=== PATIENT | female | born 1955 | race Caucasian/White ===

== ENCOUNTER → 2017-05-23 | Outpatient (CLI) | payer BC ==
[2017-05-23 08:18] LABS: Non-African American GFR(MDRD) >60 (>60 ml/min/1.73 sqM)
--- NOTE | 2017-05-23 10:19 | MR ---
EXAMINATION TYPE: MR iac wo/w con DATE OF EXAM: 05/23/2017 COMPARISON: 05/28/2013, 10/21/2012, 06/27/2011 HISTORY: acoustic nuroma disorder of the ear, headaches TECHNIQUE: Multiplanar, multisequence images of the brain and brainstem is performed without and with IV contras t, utilizing 20 mL intravenous MultiHance . FINDINGS: Diffusion weighted images demonstrate no evidence of a recent infarct or other diffusion ab normality. No mass effect or midline shift. Sella turcica has a normal appearance and cerebellar tonsils low-lying in position without evidence o f discrete Chiari malformation.. Areas of abnormal signal involving the ponce are stable. Punctate nonspecific white matter changes are noted and also nonspecific. There are changes of chronic sinusitis. Postop changes noted in the posterior temporal region on the left. Seventh /VIII nerve complex not as well-defined on the left as on the right. Likely postsurgical. There is enhancement along the inferi or margin the complex on the coronal view which appears somewhat serpiginous on the axial view. There is stable dating back to the exam of 2011. Best noted on coronal image 11. IMPRESSION: 1. Postsurgical changes with stable linear enhancement along the inferior margin of the seventh\VIII nerve complex on the left. Unchanged from 2011. The left nerve complex is less well-defined and this likely is postsurgical.2. Nonspecific white matter and pontine changes differential diagnosis would include remote microvascular ischemia. Other etiologies not excluded. Findings are stable.
== END | disposition home or self-care (01) ==
LOC: RADMRIMAIN 07:51
PROVIDERS: ATTEND Psychiatry & Neurology Neurology
DX: R90.82 White matter disease, unspecified (principal); D33.3 Benign neoplasm of cranial nerves; H93.90 Unspecified disorder of ear, unspecified ear; R51 Headache; Z98.890 Other specified postprocedural states
CPT/HCPCS: 82565; 70553; 36415; A9577

== ENCOUNTER → 2017-09-25 | Outpatient (CLI) | payer BC ==
[2017-09-25 15:21] LABS: CH 31.5; CHCM 32.2; HCT 38.9 % (34.0-46.0); HDW 2.52; HGB 12.5 gm/dL (11.4-16.0); MCH 31.6 pg (25.0-35.0); MCHC 32.1 g/dL (31.0-37.0); MCV 98.6 fL (80.0-100.0); Mean Platelet Volume 7.3; RBC 3.94 m/uL (3.80-5.40); RDW 14.1 % (11.5-15.5)
[2017-09-25 15:29] LABS: ALT 53 U/L (9-52); AST 30 U/L (14-36); Alkaline Phosphatase 67 U/L (38-126); Anion Gap 10 mmol/L; Blood Urea Nitrogen 23 mg/dL (7-17); Calcium 9.5 mg/dL (8.4-10.2); Carbon Dioxide 20 mmol/L (22-30); Chloride 109 mmol/L (98-107); Cholesterol 114 mg/dL (<200); Glucose 96 mg/dL (74-99); HDL Cholesterol 62 mg/dL (40-60); INR 1.2 (<1.2); Magnesium 1.5 mg/dL (1.6-2.3); Non-African American GFR(MDRD) 52 (>60 ml/min/1.73 sqM); Partial Thromboplastin Time 22.7 sec (22.0-30.0); Potassium 4.3 mmol/L (3.5-5.1); Sodium 139 mmol/L (137-145); Total Bilirubin 0.5 mg/dL (0.2-1.3); Total Protein 6.4 g/dL (6.3-8.2)
[2017-09-25 19:57] LABS: Iron Saturation 24.59 (12.00-45.00); Iron(FE) 75 ug/dL (50-170); Total Iron Binding Capacity 305 ug/dL (228-460)
[2017-09-27 18:49] LABS: Selenium 132 mcg/L (63-160)
== END ==
LOC: LABWHC1 15:00
PROVIDERS: ATTEND Surgery Plastic and Reconstructive Surgery
DX: Z48.815 Encounter for surgical aftercare following surgery on the digestive system (principal); E66.01 Morbid (severe) obesity due to excess calories; E21.1 Secondary hyperparathyroidism, not elsewhere classified; E89.1 Postprocedural hypoinsulinemia; D50.8 Other iron deficiency anemias; K90.89 Other intestinal malabsorption; E44.0 Moderate protein-calorie malnutrition; E55.9 Vitamin D deficiency, unspecified; K74.1 Hepatic sclerosis; K50.90 Crohn's disease, unspecified, without complications; N19 Unspecified kidney failure; Z98.84 Bariatric surgery status
CPT/HCPCS: 36415; 80053; 80061; 82306; 82525; 82607; 82728; 82746; 83036; 83540; 83550; 83735; 83970; 84100; 84134; 84255; 84425; 84443; 84590; 84630; 85027; 85610; 85730

== ENCOUNTER 2017-11-21 08:08 | Day surgery (SDC) | payer BC ==
[2017-11-19 11:48] VITALS: BMI 27.3
[~2017-11-21 08:08] MED LIST: LACTATED RINGERS 1,000 ML IV SCH
[2017-11-21 08:49] VITALS: TEMP 96.9
[2017-11-21] MEDS ORDERED: LIDOCAINE 1% 20 ML VIAL (10MG/ML) FOR IV START INTRADERMA ONE (09:08)
--- NOTE | 2017-11-21 09:57 | P.GSHP ---
History of Present Illness H&P Date: 11/21/17 CHIEF COMPLAINT: GERD and colon screen HISTORY OF PRESENT ILLNESS: The patient is a 62-year-old female who presents with gastroesophageal reflux disease and need for colon screen. Upper and lower endoscopy were offered for further evaluation and management. PAST MEDICAL HISTORY: Please see list. PAST SURGICAL HISTORY: Please see list. MEDICATIONS: Please see list. ALLERGIES: Please see list. SOCIAL HISTORY: No illicit drug use FAMILY HISTORY: No reports of Crohn disease or ulcerative colitis. REVIEW OF ORGAN SYSTEMS: CONSTITUTIONAL: No reports of fevers or chills. GI: Denies any blood in stools or constipation. PHYSICAL EXAM: VITAL SIGNS: Stable GENERAL: Well-developed pleasant in no acute distress. HEENT: No scleral icterus. Extraocular movements grossly intact. Moist buccal mucosa. NECK: Supple without lymphadenopathy. CHEST: Unlabored respirations. Equal bilateral excursions. CARDIOVASCULAR: Regular rate and rhythm. Distal 2+ pulses. ABDOMEN: Soft, nondistended. MUSCULOSKELETAL: No clubbing, cyanosis, or edema. ASSESSMENT: 1. Gastroesophageal reflux disease 2. Colon screen. PLAN: 1. Recommend proceeding with an upper and lower endoscopy Past Medical History Past Medical History: GERD/Reflux, Neurologic Disorder, Osteoarthritis (OA) Additional Past Medical History / Comment(s): RUPTURED DISCS WITH BACK PAIN., MIGRAINES, OCCASIONAL VERTIGO., KIANA LEFT EAR. History of Any Multi-Drug Resistant Organisms: None Reported Past Surgical History: Appendectomy, Bariatric Surgery Additional Past Surgical History / Comment(s): ACOUSTIC NEUROMA BRAIN TUMOR., INTESTINAL BYPASS FOR WEIGHT LOSS., KIDNEY STONES (SURGERY & LITHOTRIPSY) HX OF STEROID INJECTIONS RIGHT KNEE-6 MONTHS AGO Past Anesthesia/Blood Transfusion Reactions: Motion Sickness Additional Past Anesthesia/Blood Transfusion Reaction / Comment(s): OCCASIONAL VERTIGO Smoking Status: Former smoker - Past Family History Mother Family Medical History: No Reported History Medications and Allergies Home Medications Medication Instructions Recorded Confirmed Type Aspirin [Adult Low Dose Aspirin EC] 81 mg PO DAILY 10/23/17 11/19/17 History Harpal/D3/Mag11/Zinc/Farm Contractor/Rogerio/Bor 1 each PO DAILY 10/23/17 11/21/17 History [Caltrate 600+D Plus Tablet] Glucosam/Genaro-Msm1/C/Rogerio/Bosw 1 each PO DAILY 10/23/17 11/21/17 History [Glucosamine-Chondroitin Tablet] Multivitamins, Thera [Multivitamin 1 tab PO DAILY 10/23/17 11/19/17 History (formulary)] Gifford-3 Fatty Acids [Gifford-3] 1,000 mg PO DAILY 10/23/17 11/19/17 History ALPRAZolam [Xanax] 0.25 mg PO DAILY PRN 11/19/17 11/21/17 History DULoxetine HCL [Cymbalta] 20 mg PO DAILY 11/19/17 11/19/17 History Diclofenac Sodium [Diclofenac 100 mg PO DAILY 11/19/17 11/19/17 History Sodium ER] Levothyroxine Sodium [Synthroid] 25 mcg PO DAILY 11/19/17 11/19/17 History Magnesium Citrate 187.5 mg PO DAILY 11/19/17 11/21/17 History Omeprazole 20 mg PO DAILY 11/19/17 11/21/17 History SUMAtriptan SUCCINATE [Imitrex] 100 mg PO DAILY PRN 11/19/17 11/21/17 History Zolpidem [Ambien] 10 mg PO HS PRN 11/19/17 11/21/17 History Acetaminophen Tab [Tylenol Tab] 650 mg PO Q4H 11/21/17 11/21/17 History Potassium Chloride 8 meq PO DAILY 11/21/17 History Allergies Allergy/AdvReac Type Severity Reaction Status Date / Time wheat Allergy Unknown stomach Verified 11/19/17 11:39 pain and bloating Surgical - Exam Vital Signs Temp Pulse Resp Pulse Ox 96.9 F L 80 18 98 11/21/17 08:47 11/21/17 08:47 11/21/17 08:47 11/21/17 08:47
[2017-11-21] MEDS ORDERED: PROPOFOL 10 MG/ML 20 ML VIAL IV ONE (10:02)
[2017-11-21] MEDS ORDERED: LIDOCAINE 1% INJ 10MG/ML (20 ML MDV) ONE (10:02)
--- NOTE | 2017-11-21 10:36 | P.PCN ---
Date of Procedure: 11/21/17 Description of Procedure: PREOPERATIVE DIAGNOSIS: Gastroesophageal reflux disease. Epigastric abdominal pain. POSTOPERATIVE DIAGNOSIS: Gastroesophageal reflux disease. Epigastric abdominal pain. Chronic superficial gastritis. Duodenitis. OPERATION: Esophagogastroduodenoscopy with biopsies along antrum. SURGEON: Kristina Mccarthy MD ANESTHESIA: MAC. INDICATIONS: The patient is a 62-year-old female who presents with a history of reflux disease. Benefits and risks of the procedure were described. Informed consent was obtained. DESCRIPTION: The patient was brought into the endoscopy suite and laid in the left lateral decubitus position. An Olympus gastroscope was passed along the posterior oropharynx down to the distal esophagus where the squamocolumnar junction was encountered at 40 cm from the incisors. The stomach was entered and no bile reflux was found. Additional findings are listed below. Biopsies with cold forceps were obtained of the antrum. The first through third portion of the duodenum was examined and remarkable for mild duodenitis. Retroflexion of the scope confirmed Hill grade 3 lower esophageal valve. The squamocolumnar junction demostrated early LA grade A erosive esophagitis. The stomach was desufflated. The patient tolerated the procedure well. FINDINGS: Squamocolumnar junction 40 cm from the incisors. Diaphragmatic hiatus at 40 cm. Hill grade 3 lower esophageal valve. LA grade A erosive esophagitis. Duodenitis without bleeding. Hypertrophic mucosa with chronic gastritis. RECOMMENDATIONS: Further recommendations pending results of pathology report. Upper endoscopy as needed.
--- NOTE | 2017-11-21 10:40 | P.PCN ---
Date of Procedure: 11/21/17 Description of Procedure: PREOPERATIVE DIAGNOSIS: Colonoscopy screening. POSTOPERATIVE DIAGNOSIS: Colonoscopy screening. Collagenous colitis. Internal hemorrhoids, grade 2 External hemorrhoids, grade 3. OPERATION: Colonoscopy to the ileocecal valve and appendiceal orifice. Colonoscopy with cold forceps biopsies, random for collagenous colitis SURGEON: Kristina Mccarthy MD. ANESTHESIA: MAC. INDICATIONS: The patient is a 62-year-old female who presents for colonoscopy screening. She also reports incidental change in bowel habits. Benefits and risks were described and informed consent was obtained. DESCRIPTION OF PROCEDURE: The patient had undergone Gatorade, MiraLAX and Dulcolax prep. She had been brought into the operating room and laid in the left lateral decubitus position. After adequate intravenous sedation, the rectum was examined with 2% lidocaine jelly. No external hemorrhoids were encountered. The rectal tone was within normal limits. No lesions were palpated in the rectal vault. An Olympus colonoscope was advanced until the ileocecal valve were viewed. Abdominal wall pressure was required to advance the scope through a redundant colon. The prep was good with visualization of the mucosal folds. Random biopsies were obtained of the mucosa for evaluation of collagenous colitis. No scattered diverticulosis was encountered. No colonic polyps were found. No evidence of focal colitis was found. Retroflexion of the scope demonstrated grade 2 internal hemorrhoids without active bleeding or inflammation. The colon was desufflated. The patient had tolerated the procedure well. Withdrawal time was over 6 minutes. FINDINGS: Internal hemorrhoids, grade 2 External prolapsed hemorrhoids, grade 3. No arteriovenous malformations. No adenomatous polyps. No sigmoid diverticulosis. Random biopsies obtained for collagenous colitis. RECOMMENDATIONS: Lower endoscopy in 10 years per screening guidelines, 2027. Plan - Discharge Summary New Discharge Prescriptions: No Action Multivitamins, Thera [Multivitamin (formulary)] 1 tab PO DAILY Glucosam/Genaro-Msm1/C/Rogerio/Bosw [Glucosamine-Chondroitin Tablet] 1 each PO DAILY Bagdad-3 Fatty Acids [Bagdad-3] 1,000 mg PO DAILY Harpal/D3/Mag11/Zinc/Keyboarding Teacher/Rogerio/Bor [Caltrate 600+D Plus Tablet] 1 each PO DAILY Aspirin [Adult Low Dose Aspirin EC] 81 mg PO DAILY ALPRAZolam [Xanax] 0.25 mg PO DAILY PRN PRN Reason: Anxiety Levothyroxine Sodium [Synthroid] 25 mcg PO DAILY DULoxetine HCL [Cymbalta] 20 mg PO DAILY Zolpidem [Ambien] 10 mg PO HS PRN PRN Reason: SLEEP SUMAtriptan SUCCINATE [Imitrex] 100 mg PO DAILY PRN PRN Reason: MIGRAINES Omeprazole 20 mg PO DAILY Magnesium Citrate 187.5 mg PO DAILY Diclofenac Sodium [Diclofenac Sodium ER] 100 mg PO DAILY Acetaminophen Tab [Tylenol Tab] 650 mg PO Q4H Potassium Chloride 8 meq PO DAILY Discharge Medication List Aspirin [Adult Low Dose Aspirin EC] 81 mg PO DAILY 10/23/17 [History] Harpal/D3/Mag11/Zinc/Keyboarding Teacher/Rogerio/Bor [Caltrate 600+D Plus Tablet] 1 each PO DAILY 10/28 [History] Glucosam/Genaro-Msm1/C/Rogerio/Bosw [Glucosamine-Chondroitin Tablet] 1 each PO DAILY 10/23/17 [History] Multivitamins, Thera [Multivitamin (formulary)] 1 tab PO DAILY 10/23/17 [History ] Bagdad-3 Fatty Acids [Bagdad-3] 1,000 mg PO DAILY 10/23/17 [History] ALPRAZolam [Xanax] 0.25 mg PO DAILY PRN 11/19/17 [History] DULoxetine HCL [Cymbalta] 20 mg PO DAILY 11/19/17 [History] Diclofenac Sodium [Diclofenac Sodium ER] 100 mg PO DAILY 11/19/17 [History] Levothyroxine Sodium [Synthroid] 25 mcg PO DAILY 11/19/17 [History] Magnesium Citrate 187.5 mg PO DAILY 11/19/17 [History] Omeprazole 20 mg PO DAILY 11/19/17 [History] SUMAtriptan SUCCINATE [Imitrex] 100 mg PO DAILY PRN 11/19/17 [History] Zolpidem [Ambien] 10 mg PO HS PRN 11/19/17 [History] Acetaminophen Tab [Tylenol Tab] 650 mg PO Q4H 11/21/17 [History] Potassium Chloride 8 meq PO DAILY 11/21/17 [History]
[2017-11-21 11:06] VITALS: RESP 16
[2017-11-21 11:44] VITALS: BP 139/87; PULSE 63
== END 2017-11-21 11:45 | disposition home or self-care (01) ==
LOC: ORWHC2ENDO 08:08
PROVIDERS: ATTEND Surgery Plastic and Reconstructive Surgery
DX: K29.30 Chronic superficial gastritis without bleeding (principal); K29.80 Duodenitis without bleeding; K21.9 Gastro-esophageal reflux disease without esophagitis; K22.10 Ulcer of esophagus without bleeding; K64.1 Second degree hemorrhoids; K64.2 Third degree hemorrhoids; Q43.8 Other specified congenital malformations of intestine; E07.9 Disorder of thyroid, unspecified; G43.909 Migraine, unspecified, not intractable, without status migrainosus; M19.90 Unspecified osteoarthritis, unspecified site; Z98.84 Bariatric surgery status; Z87.891 Personal history of nicotine dependence; Z79.82 Long term (current) use of aspirin; Z79.1 Long term (current) use of non-steroidal anti-inflammatories (NSAID); Z79.899 Other long term (current) drug therapy; Z91.018 Allergy to other foods
CPT/HCPCS: 88305; 88342; 45380; 43239; J2001; J2704

== ENCOUNTER → 2017-11-30 | Outpatient (CLI) | payer BC ==
--- NOTE | 2017-11-30 17:07 | US ---
EXAMINATION TYPE: US kidneys/renal and bladder DATE OF EXAM: 11/30/2017 COMPARISON: CT & US CLINICAL HISTORY: D30.00 Benign neoplasm of unspecified kidney. EXAM MEASUREMENTS: Right Kidney: 10.9 x 4.1 x 5.2 cm Left Kidney: 10.6 x 5.7 x 5.2 cm more imaging of right kidney performed at end of exam to show angiomyolipoma. Right Kidney: echogenic lesion lower pole measures 0.9 x 1.2 x 1.0 cm Left Kidney: cyst upper pole measures 2.4 x 2.2 x 1.9 cm Bladder: wnl Bilateral Jets seen: Yes IMPRESSION: There is a 10 mm hyperechoic mass on the lower pole right kidney that is increased from 8 mm compared to old exam of 10/21/2015. This is consistent with angiomyolipoma. There is a stable 2.2 cm cyst in the upper pole left kidney.
== END | disposition home or self-care (01) ==
LOC: RADUSWWP 11-21 08:00
PROVIDERS: ATTEND Urology
DX: D30.01 Benign neoplasm of right kidney (principal); N28.1 Cyst of kidney, acquired
CPT/HCPCS: 76770

== ENCOUNTER → 2017-12-14 | Outpatient (CLI) | payer BC ==
[2017-12-17 13:23] LABS: Pork IgE Class CLASS 0
[2017-12-17 13:24] LABS: Beef IgE <0.35 kU/L (<0.35); Beef IgE Class CLASS 0; Chicken IgE Class CLASS 0; Chocolate IgE Class CLASS 0; Cow's Milk IgE Class CLASS 0; Egg White IgE <0.35 kU/L (<0.35); Egg Yolk IgE Class CLASS 0; Gluten IgE Class CLASS 0; Peanut IgE <0.35 kU/L (<0.35); Potato IgE <0.35 kU/L (<0.35); Potato IgE Class CLASS 0; Soybean IgE <0.35 kU/L (<0.35); Yeast Bakers/Brew IgE <0.35 kU/L (<0.35)
[2017-12-17 19:50] LABS: Beef IgG 16.1 mcg/mL (< 2.0); Chicken Meat IgG 4.5 mcg/mL (< 2.0); Chocolate IgG 5.1 mcg/mL (< 2.0); Corn IgG 11.6 mcg/mL (< 2.0); Cow's Milk IgG 82.7 mcg/mL (< 2.0); Egg Yolk IgG 10.2 mcg/mL (< 2.0); Peanut IgG 5.5 mcg/mL (< 2.0); Pork IgG 7.8 mcg/mL (< 2.0); Potato IgG 5.6 mcg/mL (< 2.0); Tomato IgG 7.3 mcg/mL (< 2.0); Wheat IgG 9.7 mcg/mL (< 2.0)
== END | disposition home or self-care (01) ==
LOC: LABWHC1 14:30
PROVIDERS: ATTEND Otolaryngology
DX: N83.202 Unspecified ovarian cyst, left side (principal); J30.89 Other allergic rhinitis
CPT/HCPCS: 36415; 86001; 86003

== ENCOUNTER → 2017-12-26 | Outpatient (CLI) | payer BC ==
--- NOTE | 2017-12-31 08:38 | MM ---
Reason for exam: screening (asymptomatic). Last mammogram was performed 4 years and 7 months ago. History: Patient is postmenopausal. Benign US right guided mammotome of the right breast, March 18, 2008. Excisional biopsy of the left breast, 1999. Took estrogen for 3 years beginning at age 51. Took progesterone for 3 years beginning at age 51. Physical Findings: A clinical breast exam by your physician is recommended on an annual basis and results should be correlated with mammographic findings. MG Screening Mammo w CAD Bilateral CC and MLO view(s) were taken. Prior study comparison: May 28, 2013, bilateral digital screening mammo w/CAD. Previous mammotome biopsy in the right breast. There is chronic nodularity in the right breast. No significant changes when compared with prior studies. ASSESSMENT: Negative, BI-RAD 1 RECOMMENDATION: Routine screening mammogram of both breasts in 1 year.
== END ==
LOC: RADMAMWWP 09:28
PROVIDERS: ATTEND Obstetrics & Gynecology
DX: Z12.31 Encounter for screening mammogram for malignant neoplasm of breast (principal)
CPT/HCPCS: 77067

== ENCOUNTER → 2018-10-10 | Outpatient (CLI) | payer BC ==
--- NOTE | 2018-10-10 11:49 | XR ---
EXAMINATION TYPE: XR abdomen 1V DATE OF EXAM: 10/10/2018 11:33 AM CLINICAL HISTORY: Kidney stones. TECHNIQUE: Two Upright KUB images of the abdomen are obtained. COMPARISON: CT abdomen and pelvis October 16, 2017 FINDINGS: Scattered gas is seen in non-distended small bowel loops. Gas and fecal material is seen in non-distended colon. Contrast from recent outside CT is seen in the collecting systems and bladder w ithout hydronephrosis. Numerous radiodense curvilinear sutures overlie the upper to midabdomen from p rior surgery. There is disc space narrowing with vacuum disc phenomenon right L4-L5 level redemonstra minnie. No definitive nephrolithiasis. Correlate with outside more recent CT advised. IMPRESSION: No hydronephrosis or definitive nephrolithiasis. Limitations due to contrast excretion fr om CT noted.
== END | disposition home or self-care (01) ==
LOC: RADXRMAIN 11:04
PROVIDERS: ATTEND Urology
DX: N20.0 Calculus of kidney (principal)
CPT/HCPCS: 74018

== ENCOUNTER → 2018-10-22 | Outpatient (CLI) | payer BC ==
--- NOTE | 2018-10-22 09:47 | XR ---
EXAMINATION TYPE: XR KUB DATE OF EXAM: 10/22/2018 9:37 AM CLINICAL HISTORY: Right-sided kidney stone per order TECHNIQUE: Two supine KUB images of the abdomen are obtained. COMPARISON: CT abdomen and pelvis October 16, 2017. FINDINGS: No definite nephrolithiasis is seen on x-ray. Numerous sutures horizontally upper abdomen c orrespond to subcutaneous sutures along the rectus sheath. There is overall nonobstructive bowel gas pattern. Bilateral pelvic phleboliths are redemonstrated. There is disc space narrowing with endplate sclerosis right L4-L5 level again seen. IMPRESSION: No definitive nephrolithiasis.
== END | disposition home or self-care (01) ==
LOC: RADXRMAIN 09:13
PROVIDERS: ATTEND Urology
DX: N20.1 Calculus of ureter (principal)
CPT/HCPCS: 74018

== ENCOUNTER → 2019-02-27 | Outpatient (CLI) | payer MEDICARE, BC ==
--- NOTE | 2019-02-27 13:45 | US ---
EXAMINATION TYPE: US transvaginal DATE OF EXAM: 02/27/2019 COMPARISON: US 2013 & CT October 16, 2017 CLINICAL HISTORY: N83.0 Ovarian cyst,. TECHNIQUE: Transvaginal (TV). Date of LMP: postmenopausal, no HRT EXAM MEASUREMENTS: Uterus: 4.2 x 2.8 x 3.4 cm Endometrial Stripe: 0.3 cm Right Ovary: 2.3 x 1.1 x 1.5 cm Left Ovary: 5.5 x 2.9 x 4.3 cm 1. Uterus: Anteverted heterogeneous 2. Endometrium: wnl 3. Right Ovary: wnl 4. Left Ovary: cyst measures 4.1 x 2.9 x 3.2 cm, another cyst measures 1.7 x 1.8 x 1.9 cm, and a sharifa cified rim cyst measures 2.8 x 2.1 x 2.7 cm. 5. Bilateral Adnexa: wnl 6. Posterior cul-de-sac: no free fluid Heterogeneous uterus is redemonstrated. Endometrial stripe measures within normal limits. No free flu id in pelvic cul-de-sac. There is redemonstration of asymmetrically enlarged left ovary with a larger 4.1 cm thin-walled cyst and smaller adjacent thin-walled cyst one which contains thin calcified rim. Findings correlate with 2017 CT without significant interval change. No significant change from 2014 ultrasound is noted. IMPRESSION: Stable cystic lesions or presumed benign cystic neoplasm in the left ovary. No new suspic ious lesions are evident.
== END | disposition home or self-care (01) ==
LOC: RADUSWWP 11:28
PROVIDERS: ATTEND Obstetrics & Gynecology
DX: N83.202 Unspecified ovarian cyst, left side (principal)
CPT/HCPCS: 76830

== ENCOUNTER → 2019-02-27 | Outpatient (CLI) | payer MEDICARE, BC ==
--- NOTE | 2019-02-28 13:27 | MM ---
Reason for exam: screening (asymptomatic). Last mammogram was performed 1 year and 2 months ago. History: Patient is postmenopausal. Benign US right guided mammotome of the right breast, March 18, 2008. Excisional biopsy of the left breast, 1999. Took estrogen for 3 years beginning at age 51. Took progesterone for 3 years beginning at age 51. Physical Findings: A clinical breast exam by your physician is recommended on an annual basis and results should be correlated with mammographic findings. MG 3D Screening Mammo W/Cad Bilateral CC and MLO view(s) were taken. Prior study comparison: December 26, 2017, bilateral MG screening mammo w CAD. May 28, 2013, bilateral digital screening mammo w/CAD. The breast tissue is heterogeneously dense. This may lower the sensitivity of mammography. Right biposy marker noted. ASSESSMENT: Negative, BI-RAD 1 RECOMMENDATION: Routine screening mammogram of both breasts in 1 year.
== END | disposition home or self-care (01) ==
LOC: RADMAMWWP 11:26
PROVIDERS: ATTEND Obstetrics & Gynecology
DX: Z12.31 Encounter for screening mammogram for malignant neoplasm of breast (principal)
CPT/HCPCS: 77063; 77067

== ENCOUNTER → 2020-06-17 | Outpatient (CLI) | payer MEDICARE ==
--- NOTE | 2020-06-21 13:54 | MM ---
Reason for exam: screening (asymptomatic). Last mammogram was performed 1 year and 4 months ago. History: Patient is postmenopausal. Benign US right guided mammotome of the right breast, March 18, 2008. Excisional biopsy of the left breast, 1999. Took estrogen for 3 years beginning at age 51. Took progesterone for 3 years beginning at age 51. Physical Findings: A clinical breast exam by your physician is recommended on an annual basis and results should be correlated with mammographic findings. MG 3D Screening Mammo W/Cad Bilateral CC and MLO view(s) were taken. Prior study comparison: February 27, 2019, bilateral MG 3d screening mammo w/cad. December 26, 2017, bilateral MG screening mammo w CAD. There are scattered fibroglandular densities. There are benign appearing round calcifications bilaterally. Previous mammotome biopsy in the right breast. There is no discrete abnormality. ASSESSMENT: Benign, BI-RAD 2 RECOMMENDATION: Routine screening mammogram of both breasts in 1 year.
== END | disposition home or self-care (01) ==
LOC: RADMAMWWP 09:14
PROVIDERS: ATTEND Obstetrics & Gynecology
DX: Z12.31 Encounter for screening mammogram for malignant neoplasm of breast (principal)
CPT/HCPCS: 77063; 77067

== ENCOUNTER → 2021-08-31 | Outpatient (CLI) | payer MEDICARE ==
--- NOTE | 2021-09-01 09:56 | MM ---
Reason for exam: screening (asymptomatic). Last mammogram was performed 1 year and 2 months ago. History: Patient is postmenopausal. Benign US right guided mammotome of the right breast, March 18, 2008. Excisional biopsy of the left breast, 1999. Took estrogen for 3 years beginning at age 51. Took progesterone for 3 years beginning at age 51. Physical Findings: A clinical breast exam by your physician is recommended on an annual basis and results should be correlated with mammographic findings. MG Screening Mammo w CAD Bilateral CC and MLO view(s) were taken. Prior study comparison: June 17, 2020, bilateral MG 3d screening mammo w/cad. February 27, 2019, bilateral MG 3d screening mammo w/cad. There are scattered fibroglandular densities. There is no discrete abnormality. No significant changes when compared with prior studies. ASSESSMENT: Negative, BI-RAD 1 RECOMMENDATION: Routine screening mammogram of both breasts in 1 year.
== END | disposition home or self-care (01) ==
LOC: RADMAMWWP 13:43
PROVIDERS: ATTEND Obstetrics & Gynecology
DX: Z12.31 Encounter for screening mammogram for malignant neoplasm of breast (principal); Z78.0 Asymptomatic menopausal state
CPT/HCPCS: 77067

== ENCOUNTER → 2023-04-02 | Outpatient (CLI) | payer MEDICARE ==
--- NOTE | 2023-04-03 08:37 | MM ---
Reason for Exam: Screening (asymptomatic). Last mammogram was performed 1 year(s) and 7 month(s) ago. Patient History: Menarche at age 11. First Full-Term at age 22. Postmenopausal. Estrogen for 3 years from age 51 until age 54. Progesterone for 3 years from age 51 until age 54. 1999, Excisional Biopsy on the Left side. 03/18/2008, Benign Core Biopsy on the right side. Risk Values: Evelia 5 year model risk: 2.3%. NCI Lifetime model risk: 7.4%. Prior Study Comparison: 02/27/2019 Bilateral Screening Mammogram, [facility]. 06/17/2020 Bilateral Screening Mammogram, [facility]. 08/31/2021 Bilateral Screening Mammogram, [facility]. Tissue Density: There are scattered fibroglandular densities. Findings: Analyzed By CAD. Right breast biopsy clip. Stable right breast probable lymph node. There is no suspicious group of microcalcifications or new suspicious mass in either breast. Overall Assessment: Benign, BI-RAD 2 Management: Screening Mammogram of both breasts in [address] [facility] will attempt to contact patient to return for supplemental views and ultrasound if indicated. Patient should continue monthly self-breast exams. A clinical breast exam by your physician is recommended on an annual basis. This exam should not preclude additional follow-up of suspicious palpable abnormalities. Note on Evelia scores and lifetime risk: 1. A Evelia score greater than 3% is considered moderate risk. If this is the case, consider specialist referral to assess eligibility for a risk reducing agent. 2. If overall lifetime risk for the development of breast cancer is 20% or higher, the patient may qualify for future screening with alternating mammogram and breast MRI. Electronically signed and approved by: Aldair Choi DO
== END | disposition home or self-care (01) ==
LOC: RADMAMWWP 10:09
PROVIDERS: ATTEND Obstetrics & Gynecology
DX: Z12.31 Encounter for screening mammogram for malignant neoplasm of breast (principal); Z78.0 Asymptomatic menopausal state
CPT/HCPCS: 77063; 77067

== ENCOUNTER → 2023-06-22 | Outpatient (CLI) | payer MEDICARE ==
--- NOTE | 2023-06-22 17:04 | US ---
EXAMINATION TYPE: US pelvis complete transvag DATE OF EXAM: 06/22/2023 COMPARISON: US DATED 02/27/2019 CLINICAL INDICATION: Female, 67 years old with history of N83.8 LEFT OVARIAN MASS; TECHNIQUE: Transvaginal (TV) and Transabdominal (TA) . Transabdominal sonographic images of the pel vis were acquired. Transvaginal sonographic images were medically necessary to better assess the fol lowing anatomy: LEFT OVARY. Date of LMP: Post menopausal, no HRT. EXAM MEASUREMENTS: Uterus: 4.1 x 2.2 x 3.3 cm Endometrial Stripe: 0.3 cm Right Ovary: 2.0 x 2.2 x 1.3 cm Left Ovary: 6.2 x 7.4 x 4.0 cm cm 1. Uterus: Anteverted wnl 2. Endometrium: wnl 3. Right Ovary: wnl 4. Left Ovary: appears as large complex cystic mass with a calcified rim cyst area as seen previousl y, overall size appears increased from prior. 5. Bilateral Adnexa: wnl 6. Posterior cul-de-sac: wnl IMPRESSION: Complex cystic mass with layering debris left adnexa is redemonstrated however appears to be larger i n size.
== END | disposition home or self-care (01) ==
LOC: RADUSWWP 13:34
PROVIDERS: ATTEND Obstetrics & Gynecology
DX: N83.8 Other noninflammatory disorders of ovary, fallopian tube and broad ligament (principal)
CPT/HCPCS: 76830; 76856; 86304

== ENCOUNTER → 2023-07-23 | Outpatient (CLI) | payer MEDICARE ==
[2023-07-23 21:35] LABS: BUN/Creat Ratio 21.43 Ratio (12.00-20.00); Calcium 9.5 mg/dL (8.7-10.3); Carbon Dioxide 21.7 mmol/L (21.6-31.8); Chloride 108 mmol/L (96-109); Glucose 88 mg/dL (70-110); Potassium 4.5 mmol/L (3.5-5.5); Sodium 141 mmol/L (135-145)
[2023-07-24 06:05] LABS: Basophils # (A) 0.04 X 10*3/uL (0.00-0.10); Basophils % (A) 0.4 %; Eosinophils # (A) 0.07 X 10*3/uL (0.04-0.35); Eosinophils % (A) 0.8 %; HCT 39.6 % (37.2-46.3); HGB 13.1 d/dL (12.0-15.0); Lymphocytes # (A) 2.76 X 10*3/uL (0.90-5.00); Lymphocytes % (A) 29.9 %; MCH 30.9 pg (27.0-32.0); MCHC 33.1 d/dL (32.0-37.0); MCV 93.4 FL (80.0-97.0); Mean Platelet Volume 10.1 FL (9.5-12.2); Monocytes # (A) 0.57 X 10*3/uL (0.20-1.00); Monocytes % (A) 6.2 %; NRBC Per 100 WBC 0 X 10*3/uL (0.00-0.01); Neutrophils # (A) 5.78 X 10*3/uL (1.80-7.70); Neutrophils % (A) 62.5 %; Platelet Count 376 X 10*3/uL (140-440); RBC 4.24 X 10*6/uL (4.10-5.20); WBC 9.24 X 10*3/uL (4.50-10.00)
== END | disposition home or self-care (01) ==
LOC: LABPAT 12:29
PROVIDERS: ATTEND Obstetrics & Gynecology
DX: Z01.812 Encounter for preprocedural laboratory examination (principal)
CPT/HCPCS: 80048; 85025; 93005